=== PATIENT | female | born 1950 | race Caucasian/White ===

== ENCOUNTER 2016-09-20 09:30 | Day surgery (SDC) | payer OTHER, MEDICAID ==
[2016-09-20] MEDS: TETRACAINE 0.5% OPHTH 1 DOSE AFFEYE ONE ×2 (10:03→13:05)
[2016-09-20] MEDS ORDERED: DIPRIVAN VIAL ONE (10:04)
[2016-09-20] MEDS: VIGAMOX 0.5% OPHTH 1 DOSE AFFEYE ONE ×5 (10:05→13:25)
[2016-09-20] MEDS: PROLENSA OPHTH 1 DOSE AFFEYE ONE (10:16)
[2016-09-20] MEDS: ALPHAGAN-P OPHTH 1 DOSE AFFEYE ONE (10:18)
[2016-09-20] MEDS: AK-DILATE 2.5% OPHTH 1 DOSE OP ONE ×3 (10:20→10:27)
[2016-09-20] MEDS: CYCLOGYL 1% OPHTH 1 DOSE OP ONE ×3 (10:20→10:26)
[2016-09-20] MEDS: MYDRIACIL OPHTH 1 DOSE AFFEYE ONE ×3 (10:20→10:27)
[2016-09-20] MEDS: NS 500 ML IV 500 ML IV ONE (10:29)
[2016-09-20] MEDS: BETADINE OPHTH SOLN 5% EACHEYE ONE (13:05)
[2016-09-20] MEDS: ADRENALINE CHL INJ IJ ONE (13:13)
[2016-09-20] MEDS: BSS OPHTH (PLAIN) 500 ML with VANCOMYCIN HCL 500 MG VIAL 25 MG, ADRENALINE CHL INJ 1 MG IR ONE ×3 (13:13)
[2016-09-20] MEDS: XYLOCAINE-MPF 1% IJ ONE (13:13)
[2016-09-20] MEDS: DUOVISC IO ONE (13:13)
[2016-09-20 14:27] VITALS: BP 121/60
== END 2016-09-20 13:50 | disposition home or self-care (01) ==
LOC: SURG1 09:30
PROVIDERS: ATTEND Ophthalmology
PROC: 08RK3JZ Replacement of Left Lens with Synthetic Substitute, Percutaneous Approach (ICD-10-PCS; principal; 2016-09-20 14:00)
PROC: 08DK3ZZ Extraction of Left Lens, Percutaneous Approach (ICD-10-PCS; principal; 2016-09-20 14:00)
DX: H25.12 Age-related nuclear cataract, left eye (principal); H25.012 Cortical age-related cataract, left eye; H25.042 Posterior subcapsular polar age-related cataract, left eye; H52.222 Regular astigmatism, left eye
CPT/HCPCS: A9270; A4217; J0170; J3370; J3490

== ENCOUNTER 2016-10-18 07:28 | Day surgery (SDC) | payer OTHER, MEDICAID ==
[2016-10-18] MEDS ORDERED: NS 500 ML IV 500 ML IV ONE (07:48)
[2016-10-18] MEDS ORDERED: TETRACAINE 0.5% OPHTH 1 DOSE AFFEYE ONE ×4 (08:00→10:07)
[2016-10-18] MEDS ORDERED: DUREZOL OPHTH 1 DOSE AFFEYE ONE (08:00)
[2016-10-18] MEDS ORDERED: VIGAMOX 0.5% OPHTH 1 DOSE AFFEYE ONE ×3 (08:10→10:41)
[2016-10-18] MEDS ORDERED: PROLENSA OPHTH 1 DOSE AFFEYE ONE (08:11)
[2016-10-18] MEDS ORDERED: CYCLOGYL 1% OPHTH 1 DOSE OP ONE ×3 (08:12→08:14)
[2016-10-18] MEDS ORDERED: MYDRIACIL OPHTH 1 DOSE AFFEYE ONE ×3 (08:12→08:14)
[2016-10-18] MEDS ORDERED: AK-DILATE 2.5% OPHTH 1 DOSE OP ONE ×3 (08:12→08:14)
[2016-10-18] MEDS ORDERED: BETADINE OPHTH SOLN 5% EACHEYE ONE (10:07)
[2016-10-18] MEDS ORDERED: ADRENALINE CHL INJ IJ ONE ×2 (10:11→10:29)
[2016-10-18] MEDS ORDERED: XYLOCAINE-MPF 1% IJ ONE ×2 (10:11→10:29)
[2016-10-18] MEDS ORDERED: DUOVISC IO ONE ×2 (10:11→10:29)
[2016-10-18] MEDS ORDERED: BSS OPHTH (PLAIN) 500 ML with VANCOMYCIN HCL 500 MG VIAL 25 MG, ADRENALINE CHL INJ 1 MG IR ONE ×6 (10:13)
[2016-10-18 11:40] VITALS: BP 151/65
[2016-10-18] MEDS ORDERED: DIPRIVAN VIAL ONE (14:00)
== END 2016-10-18 11:05 | disposition home or self-care (01) ==
LOC: SURG1 07:28
PROVIDERS: ATTEND Ophthalmology
PROC: 08DJ3ZZ Extraction of Right Lens, Percutaneous Approach (ICD-10-PCS; principal; 2016-10-18 08:15)
PROC: 08RJ3JZ Replacement of Right Lens with Synthetic Substitute, Percutaneous Approach (ICD-10-PCS; principal; 2016-10-18 08:15)
DX: H25.11 Age-related nuclear cataract, right eye (principal); H25.011 Cortical age-related cataract, right eye; H25.041 Posterior subcapsular polar age-related cataract, right eye; H52.221 Regular astigmatism, right eye
CPT/HCPCS: A9270; A4217; J0170; J3370; J3490